=== PATIENT | female | born 1955 | race Asian ===

== ENCOUNTER 2022-02-24 08:04 | Day surgery (SDC) | payer OTHER ==
[2022-02-19 15:16] VITALS: BMI 19.5
[2022-02-24] MEDS ORDERED: LIDOCAINE HCL/PF 2% SDV 5ML VIAL ONE (09:13)
[2022-02-24] MEDS ORDERED: PROPOFOL 120 ML ONE (09:13)
[2022-02-24 09:40] VITALS: TEMP 97.5
[2022-02-24 11:09] VITALS: BP 110/68; PULSE 80; RESP 19
== END 2022-02-24 11:09 | disposition home or self-care (01) ==
LOC: FASU-ENDO 08:04
PROVIDERS: ATTEND Internal Medicine Gastroenterology
PROC: 0DJD8ZZ Inspection of Lower Intestinal Tract, Via Natural or Artificial Opening Endoscopic (ICD-10-PCS; principal; 2022-02-24 09:16)
DX: Z12.11 Encounter for screening for malignant neoplasm of colon (principal); Z80.0 Family history of malignant neoplasm of digestive organs